=== PATIENT | female | born 1980 | race Caucasian/White ===

== ENCOUNTER 2018-09-08 11:32 | Inpatient (IN) ==
[2018-09-08] MEDS ORDERED: SODIUM CHLORIDE 0.9% 1,000 ML IV STA ×2 (12:09→13:20)
[2018-09-08 12:29] LABS: Basophils % 0.3 % (0.0-0.8); Eosinophils # 0.1 10*3/uL (0.0-0.87); Eosinophils % 0.5 % (0.00-10.9); Hematocrit 33.7 VOL% (35.7-47.0); Hemoglobin 10.6 GM/DL (12.0-16.0); Immature Granulocytes % 0.4 %; Immature Granulocytes Absolute 0.06 #; Lymphocytes # 1.3 10*3/uL (1.4-4.0); Lymphocytes % 9.3 % (21.3-54.2); Mean Corpuscular HGB Conc 31.5 GM/DL (32-36); Mean Corpuscular Volume 94.9 FL (87-102); Mean Platelet Volume 9.3 FL (9.6-12.0); Monocytes % 3.1 % (1.7-12.7); Neutrophils % 86.4 % (38.7-73.9); Platelet Count 280 T/CUMM (130-400); Red Blood Count 3.55 MC/CUMM (3.8-5.5); White Blood Count 13.8 T/CUMM (4-12)
[2018-09-08 12:36] LABS: INR 0.9; PT Patient Result 9.9 SECS
[2018-09-08 12:47] LABS: Apearance,Urine CLEAR (Clear); Bacteria,Urine Occasional /HPF (Few); Bilirubin,Urine Negative (Negative); Blood, Urine Moderate mg/dL (Negative); Glucose,Urine (UA) Negative (Negative); Hyaline Casts,Urine 22 /LPF (0-3); Ketones,Urine 5 mg/dL (Negative); Mucus,Urine Occasional /LPF (Occasional); Nitrite,Urine Negative (Negative); Protein,Urine 30 MG/DL; RBC,Urine 1 /HPF (0-4); Salicylate 31.9 MG/DL (2.8-20); Squamous Epithelial Cell,Urine Occasional /HPF (0-10); Urine Color Yellow (Yellow); Urine Specific Gravity 1.021 (1.001-1.035); Urine Urobilinogen < 2.0 EU/DL (0.2-1.0); WBC,Urine 2 /HPF (0-6)
[2018-09-08 12:48] LABS: Alanine Aminotransferase 36 U/L (13-56); Albumin 2.6 G/DL (3.4-5.0); Alkaline Phosphatase 79 U/L (45-117); Aspartate Amino Transferase 92 U/L (0-37); Bilirubin,Total < 0.39 MG/DL (0.2-1.0); Blood Urea Nitrogen 11 MG/DL (7-18); Calcium 7.4 MG/DL (8.5-10.1); Glucose 98 MG/DL (74-106); Osmolality,Calculated 284.8 MOS/KG (273-304); Total Protein 5.6 G/DL (6.4-8.3)
[2018-09-08 12:52] LABS: Barbiturates Screen,Urine Negative (Negative); Benzodiazepines Screen,Urine Negative (Negative); Cannabinoid Screen,Urine Negative (Negative); Opiate Screen,Urine Negative (Negative); Phencyclidine Screen,Urine Negative (Negative)
[2018-09-08] MEDS ORDERED: SODIUM BICARBONATE 50 MEQ/50 ML SYRINGE IV ONE (13:15)
[2018-09-08] MEDS ORDERED: SODIUM BICARBONATE 50 MEQ/50 ML VIAL IV STA (13:20)
[2018-09-08] MEDS ORDERED: NALOXONE 0.4 MG/ML VIAL ONE (14:34)
[2018-09-08] MEDS ORDERED: NALOXONE 0.4 MG/ML VIAL IV STA (14:35)
[2018-09-08] MEDS ORDERED: ONDANSETRON 4 MG/2 ML VIAL IV PRN (15:19)
[2018-09-08] MEDS ORDERED: SODIUM CHLORIDE 0.9% 1,000 ML IV SCH (15:30)
[2018-09-08] MEDS ORDERED: NALOXONE 0.4 MG/ML VIAL IV PRN (15:52)
[2018-09-08] MEDS ORDERED: MAGNESIUM SULF RIDER 2 GM in PREMIX 1 EACH IV PRN (15:54)
[2018-09-08] MEDS ORDERED: MAGNESIUM SULF RIDER 4 GM in PREMIX 1 EACH IV PRN (15:54)
[2018-09-08] MEDS: ENOXAPARIN 40 MG/0.4 ML SYRINGE SUBCUT SCH (17:05)
[2018-09-08] MEDS: POTASSIUM CHLORIDE RIDER 10 MEQ in PREMIX 1 EACH IV PRN ×5 (17:24→22:23)
[2018-09-08] MEDS: ALBUTEROL 2.5 MG/3 ML NEB RESP TX SCH ×2 (19:09→23:33)
[2018-09-08] MEDS: SODIUM BICARB INJ 100 MEQ in DEXTROSE 5% 1,000 ML IV SCH (20:40)
[2018-09-08] MEDS: FAMOTIDINE 20 MG/2 ML VIAL IV SCH (20:59)
[2018-09-08 22:03] LABS: ABG Base Excess 5.3 MMOL/L (-2.5-2.5); ABG HCO3 29.1 MMOL/L (20-26); ABG Oxygen Saturation 96.2 % (95-100); ABG PCO2 60.5 MM HG (35-48); ABG PH 7.341 (7.35-7.45); ABG PO2 83.6 MM HG (80-95); ABG TCO2 29.7 MMOL/L (23-27); Allen Test Positive
[2018-09-08 22:35] LABS: CKMB % 0.7 %
[2018-09-09 01:27] LABS: Alanine Aminotransferase 39 U/L (13-56); Albumin 2.8 G/DL (3.4-5.0); Alkaline Phosphatase 80 U/L (45-117); Aspartate Amino Transferase 125 U/L (0-37); Basophils % 0.4 % (0.0-0.8); Bilirubin,Total < 0.39 MG/DL (0.2-1.0); Blood Urea Nitrogen 10 MG/DL (7-18); Calcium 7.3 MG/DL (8.5-10.1); Eosinophils # 0.1 10*3/uL (0.0-0.87); Eosinophils % 0.9 % (0.00-10.9); Glucose 103 MG/DL (74-106); Immature Granulocytes % 0.5 %; Immature Granulocytes Absolute 0.05 #; Lymphocytes # 2.2 10*3/uL (1.4-4.0); Lymphocytes % 21.6 % (21.3-54.2); Mean Corpuscular HGB Conc 30.3 GM/DL (32-36); Mean Corpuscular Volume 97.1 FL (87-102); Neutrophils % 71.6 % (38.7-73.9); Osmolality,Calculated 288.6 MOS/KG (273-304); Platelet Count 286 T/CUMM (130-400); Red Cell Distribution Width 17.4 % (9.3-17.3); Thyroid Stimulating Hormone 0.499 uIU/ml (0.358-3.74); Total Protein 5.7 G/DL (6.4-8.3); White Blood Count 10.1 T/CUMM (4-12)
[2018-09-09] MEDS ORDERED: POTASSIUM CHLORIDE INJ 50 MEQ in SODIUM CHLORIDE 0.9% 500 ML IV PRN (02:05)
[2018-09-09] MEDS ORDERED: POTASSIUM CHLORIDE INJ 50 MEQ in SODIUM CHLORIDE 0.9% 500 ML IV ONE (02:30)
[2018-09-09] MEDS: ALBUTEROL 2.5 MG/3 ML NEB RESP TX SCH ×6 (02:54→23:07)
[2018-09-09] MEDS: SODIUM BICARB INJ 100 MEQ in DEXTROSE 5% 1,000 ML IV SCH ×2 (04:28→11:42)
[2018-09-09] MEDS: NICOTINE 21 MG/24 HR PATCH TRANSDERM PRN (11:02)
[2018-09-09] MEDS: FAMOTIDINE 20 MG/2 ML VIAL IV SCH ×2 (11:03→20:37)
[2018-09-09] MEDS: POTASSIUM CHLORIDE RIDER 10 MEQ in PREMIX 1 EACH IV PRN ×8 (12:46→22:04)
[2018-09-09] MEDS: SODIUM CHLOR 0.9% KCL 40 MEQ 40 MEQ/1,000 ML BAG IV SCH ×2 (12:47→23:16)
[2018-09-09] MEDS: ENOXAPARIN 40 MG/0.4 ML SYRINGE SUBCUT SCH (16:14)
[2018-09-10 01:38] LABS: Calcium 7.7 MG/DL (8.5-10.1); Osmolality,Calculated 278.3 MOS/KG (273-304)
[2018-09-10] MEDS: ALBUTEROL 2.5 MG/3 ML NEB RESP TX SCH ×5 (02:56→19:40)
[2018-09-10] MEDS: POTASSIUM CHLORIDE RIDER 10 MEQ in PREMIX 1 EACH IV PRN ×2 (05:14→06:20)
[2018-09-10 07:03] VITALS: BP 121/92
[2018-09-10 08:18] LABS: ABG Base Excess 6.2 MMOL/L (-2.5-2.5); ABG Oxygen Saturation 95.4 % (95-100); ABG PCO2 54.7 MM HG (35-48); ABG PH 7.384 (7.35-7.45); ABG PO2 73.5 MM HG (80-95); ABG TCO2 29.7 MMOL/L (23-27); Allen Test Positive
[2018-09-10] MEDS: FAMOTIDINE 20 MG/2 ML VIAL IV SCH ×2 (09:44→20:34)
[2018-09-10] MEDS: SODIUM CHLOR 0.9% KCL 40 MEQ 40 MEQ/1,000 ML BAG IV SCH ×2 (09:44→20:01)
[2018-09-10] MEDS: ENOXAPARIN 40 MG/0.4 ML SYRINGE SUBCUT SCH (16:29)
[2018-09-10] MEDS: NICOTINE 21 MG/24 HR PATCH TRANSDERM PRN (16:30)
[2018-09-10] MEDS: IBUPROFEN 400 MG TABLET PO PRN (17:13)
[2018-09-11] MEDS: ALBUTEROL 2.5 MG/3 ML NEB RESP TX SCH ×3 (00:58→07:33)
[2018-09-11] MEDS: IBUPROFEN 400 MG TABLET PO PRN (03:07)
[2018-09-11 03:21] LABS: ABG Base Excess 5.1 MMOL/L (-2.5-2.5); ABG HCO3 28.9 MMOL/L (20-26); ABG Oxygen Saturation 91.4 % (95-100); ABG PCO2 42.3 MM HG (35-48); ABG PH 7.453 (7.35-7.45); ABG TCO2 26.4 MMOL/L (23-27); Allen Test Positive; Pt O2 Delivery Device Room Air
[2018-09-11 05:25] LABS: Basophils % 0.3 % (0.0-0.8); Eosinophils # 0.2 10*3/uL (0.0-0.87); Hematocrit 32.6 VOL% (35.7-47.0); Hemoglobin 10.4 GM/DL (12.0-16.0); Immature Granulocytes % 0.3 %; Immature Granulocytes Absolute 0.02 #; Lymphocytes # 1.7 10*3/uL (1.4-4.0); Lymphocytes % 26.6 % (21.3-54.2); Mean Corpuscular HGB Conc 31.9 GM/DL (32-36); Mean Corpuscular Volume 95.3 FL (87-102); Mean Platelet Volume 9.9 FL (9.6-12.0); Monocytes % 5.4 % (1.7-12.7); Neutrophils % 64.4 % (38.7-73.9); Platelet Count 287 T/CUMM (130-400); Red Blood Count 3.42 MC/CUMM (3.8-5.5); Red Cell Distribution Width 16.7 % (9.3-17.3); White Blood Count 6.3 T/CUMM (4-12)
[2018-09-11] MEDS: SODIUM CHLOR 0.9% KCL 40 MEQ 40 MEQ/1,000 ML BAG IV SCH (05:38)
[2018-09-11 05:59] LABS: Calcium 8.2 MG/DL (8.5-10.1); Osmolality,Calculated 287.6 MOS/KG (273-304)
[2018-09-11] MEDS: POTASSIUM CHLORIDE RIDER 10 MEQ in PREMIX 1 EACH IV PRN ×2 (06:08→07:28)
[2018-09-11] MEDS: FAMOTIDINE 20 MG/2 ML VIAL IV SCH (09:39)
== END 2018-09-11 10:03 | disposition home or self-care (01) | DRG 917 ==
LOC: EDBD → EDUNIT# → N.ED 11:32 → SUATTDRO 15:19 → N.EDINP 15:19 → N.ICU 17:59
PROVIDERS: ADMIT Internal Medicine; ATTEND Internal Medicine